=== PATIENT | female | born 1970 | race American Indian/Alaskan Native ===

== ENCOUNTER 2017-10-20 09:10 | Outpatient (CLI) | payer BC ==
--- NOTE | 2017-10-20 10:45 | Ultrasound Report ---
ULTRASOUND PELVIC COMPLETE ULTRASOUND TRANSVAGINAL HISTORY: Dysmenorrhea. COMPARISON: None at this facility. TECHNIQUE: Transabdominal and transvaginal ultrasound with color doppler interrogation. FINDINGS: Uterus: The uterus is retroflexed. The uterus is mildly enlarged measuring 11.2 x 7.5 x 5.9 cm. There is an intramural fibroid measuring up to 2.7 cm in diameter within the anterior wall which appears to have a small submucosal component. Scattered smaller intramural fibroids are suspected. Normal cervix. Endometrium: The endometrial stripe measures 7.8 mm in thickness. There is an echogenic area within the endometrium in the uterine fundus measuring up to 5 x 14 mm. This may represent blood products. A polyp could also be considered. The remainder the endometrium is within normal limits. Right ovary: 3.2 x 2.5 x 2.8 cm. No focal abnormality. Left ovary: 2.4 x 1.6 x 2.5 cm. No focal abnormality. No pelvic fluid or mass is identified. Normal color doppler interrogation. IMPRESSION: Mild uterine fibroid disease as described. Echogenic area within the endometrium which could represent a small endometrial polyp or blood products.
== END 2017-10-20 09:11 | disposition home or self-care (01) ==
LOC: US 09:10
PROVIDERS: ATTEND Nurse Practitioner Family
DX: D25.1 Intramural leiomyoma of uterus (principal); N85.4 Malposition of uterus
CPT/HCPCS: 76830; 76856